=== PATIENT | male | born 1985 | race Caucasian/White ===

== ENCOUNTER 2020-10-11 14:09 | Emergency (ER) | payer OTHER, SELFPAY ==
[2020-10-11] MEDS ORDERED: diphenhydrAMINE 50 MG/ML VIAL ONE (15:00)
[2020-10-11] MEDS ORDERED: Acetaminophen 500 MG TAB ONE (15:01)
[2020-10-11] MEDS ORDERED: Metoclopramide HCl 10 MG/2 ML VIAL ONE (15:01)
== END 2020-10-11 16:40 | disposition home or self-care (01) ==
LOC: CSHERS 14:09
DX: R51.9 Headache, unspecified (principal); I10 Essential (primary) hypertension; E78.00 Pure hypercholesterolemia, unspecified
CPT/HCPCS: 70450; 72125; 96365; 96375; J1200; J2765

== ENCOUNTER 2020-10-12 06:24 | Emergency (ER) | payer OTHER, SELFPAY ==
[2020-10-12] MEDS ORDERED: Cefepime 2 GM VIAL ONE (06:57)
[2020-10-12] MEDS ORDERED: Acetaminophen 500 MG TAB ONE (06:57)
[2020-10-12 07:37] LABS: #Eosinphils 0.1 10x3/uL (0.0-0.5); #Monocytes 0.3 10x3/uL (0.0-1.1); %Basophils 0.4 % (0.0-2.0); %Eosinophils 0.9 % (0.0-6.0); %Lymphocytes 22.3 % (18.0-47.0); %Monocytes 2.8 % (0.0-10.0); Hemoglobin 15.9 g/dL (13.5-17.5); Mean Corpuscular HGB CONC 33.9 g/dL (32.0-36.0); Mean Corpuscular Hemoglobin 32.6 pg (27.0-33.0); Mean Corpuscular Volume 96.1 fl (81.2-95.1); Mean Platelet Volume 10.6 fl (7.4-10.4); Platelet Count 161 10x3/uL (150-450); RBC Distribution Width 12.7 % (11.5-14.5); Red Blood Cell (RBC) Count 4.88 10x6/uL (4.32-5.72); White Blood Cell (WBC) Count 9.8 10x3/uL (3.5-10.5)
[2020-10-12 07:58] LABS: Acetaminophen Less than 6.0 mcg/mL (10.0-30.0); Alcohol Less than 10 mg/dL (Less than 10); Salicylate Less than 8.0 mg/dL (15.0-30.0)
[2020-10-12 08:01] LABS: ALT (SGPT) 50 U/L (8-55); AST (SGOT) 29 U/L (5-34); Alkaline Phosphatase 74 U/L (40-110); Anion Gap 21 mmol/L (10-20); BUN (Urea Nitrogen) 11 mg/dL (8.9-20.6); Bilirubin, Total 1.7 mg/dL (0.2-1.2); CK (CPK) 67 U/L (30-200); Calc. Creatinine Clearance 0 mL/min (70-130); Calcium 8.9 mg/dL (7.8-10.44); Carbon Dioxide 18 mmol/L (22-29); Chloride 104 mmol/L (98-107); Globulin 3.4 g/dL (2.4-3.5); Glucose 148 mg/dL (70-105); Potassium 3.8 mmol/L (3.5-5.1); Protein, Total 7.4 g/dL (6.0-8.3); Sodium 139 mmol/L (136-145)
[2020-10-12 08:04] LABS: SARS-CoV-2 NAA Rapid Test Not Detected (NotDetected)
[2020-10-12] MEDS ORDERED: Ibuprofen 200 MG TAB ONE (08:13)
[2020-10-12 10:05] LABS: Bilirubin Neg (Negative); Blood, Urine 150 (Negative); Clarity Slightly Cloudy (Clear); Glucose, Urine (Dipstick) Normal (Negative); Ketone, Urine Negative (Negative); Leukocyte 100 (Negative); Nitrite Positive (Negative); Protein, Urine (Dipstick) 15 mg/dl (Neg-Trace); Specific Gravity, Urine 1.005 (1.002-1.036); Urobilinogen Normal mg/dL (Less than 2)
[2020-10-12 10:13] LABS: Amphetamine Not Detected (NotDetected); Barbiturates Screen Not Detected (NotDetected); Benzodiazepine Screen Not Detected (NotDetected); Cocaine Metabolite Screen Not Detected (NotDetected); Methadone Not Detected (NotDetected); Methamphetamine Not Detected (NotDetected); Opiate Screen Not Detected (NotDetected); Oxycodone Screen Not Detected (NotDetected); Phencyclidine (PCP) Not Detected (NotDetected); THC/Cannabinoid Screen Not Detected (NotDetected); Tricyclic Screen Not Detected (NotDetected)
[2020-10-12 10:20] LABS: RBC/HPF 0-3 HPF (0-3)
[2020-10-12 10:21] LABS: Bacteria/HPF 1+ HPF (None Seen); Squamous Epithelial 0-3 HPF (0-3)
[2020-10-12 10:24] LABS: Lactic Acid 1.1 mmol/L (0.5-2.2)
== END 2020-10-12 11:37 | disposition home or self-care (01) ==
LOC: CSHERS 06:24
DX: N30.00 Acute cystitis without hematuria (principal); B97.89 Other viral agents as the cause of diseases classified elsewhere; E78.5 Hyperlipidemia, unspecified; I10 Essential (primary) hypertension
CPT/HCPCS: 0240U; 71045; 80053; 80306; 80307; 81003; 81015; 82550; 83605; 84443; 84484; 85025; 87040; 87077; 87086; 87149; 87186; 93005; 94760; 96365; 96367; J0692; J3370

== ENCOUNTER 2020-10-13 08:35 | Observation (INO) | payer OTHER, SELFPAY ==
[2020-10-13 09:29] LABS: #Basophils 0.1 10x3/uL (0.0-0.2); #Eosinphils 0.1 10x3/uL (0.0-0.5); #Monocytes 0.6 10x3/uL (0.0-1.1); #Neutrophils 4.9 10x3/uL (1.5-8.4); %Basophils 0.6 % (0.0-2.0); %Eosinophils 1.6 % (0.0-6.0); %Lymphocytes 23.7 % (18.0-47.0); %Monocytes 8.2 % (0.0-10.0); %Neutrophils 63.8 % (40.0-75.0); Hemoglobin 14.5 g/dL (13.5-17.5); Mean Corpuscular HGB CONC 33.7 g/dL (32.0-36.0); Mean Corpuscular Hemoglobin 32.7 pg (27.0-33.0); Mean Corpuscular Volume 97.1 fl (81.2-95.1); Mean Platelet Volume 10.2 fl (7.4-10.4); Platelet Count 140 10x3/uL (150-450); RBC Distribution Width 12.8 % (11.5-14.5); Red Blood Cell (RBC) Count 4.43 10x6/uL (4.32-5.72); White Blood Cell (WBC) Count 7.7 10x3/uL (3.5-10.5)
[2020-10-13 09:34] LABS: ALT (SGPT) 40 U/L (8-55); AST (SGOT) 28 U/L (5-34); Albumin 3.6 g/dL (3.5-5.0); Alkaline Phosphatase 55 U/L (40-110); Anion Gap 13 mmol/L (10-20); BUN (Urea Nitrogen) 8 mg/dL (8.9-20.6); Bilirubin, Total 0.6 mg/dL (0.2-1.2); Calc. Creatinine Clearance 0 mL/min (70-130); Calcium 8.6 mg/dL (7.8-10.44); Carbon Dioxide 20 mmol/L (22-29); Chloride 111 mmol/L (98-107); Globulin 3.7 g/dL (2.4-3.5); Glucose 109 mg/dL (70-105); Potassium 3.8 mmol/L (3.5-5.1); Protein, Total 7.3 g/dL (6.0-8.3); Sodium 140 mmol/L (136-145)
[2020-10-13] MEDS ORDERED: cefTRIAXone\\ROCEPHIN 2 GM VIAL ONE (10:37)
[2020-10-13 12:37] VITALS: BMI 37.2
[2020-10-13] MEDS ORDERED: Ondansetron ODT 4 MG TAB PO PRN (16:09)
[2020-10-13] MEDS ORDERED: Ondansetron PF 4 MG/2 ML Vial IVP PRN (16:09)
[2020-10-13] MEDS ORDERED: Acetaminophen 325 MG TAB PO PRN (16:11)
[2020-10-14 06:16] LABS: Anion Gap 11 mmol/L (10-20); BUN (Urea Nitrogen) 8 mg/dL (8.9-20.6); Calc. Creatinine Clearance 225 mL/min (70-130); Calcium 8.9 mg/dL (7.8-10.44); Carbon Dioxide 26 mmol/L (22-29); Chloride 109 mmol/L (98-107); Glucose 106 mg/dL (70-105); Potassium 3.8 mmol/L (3.5-5.1); Sodium 142 mmol/L (136-145)
[2020-10-14 07:31] LABS: #Basophils 0.1 10x3/uL (0.0-0.2); #Eosinphils 0.2 10x3/uL (0.0-0.5); #Monocytes 0.8 10x3/uL (0.0-1.1); #Neutrophils 3.7 10x3/uL (1.5-8.4); %Basophils 0.8 % (0.0-2.0); %Eosinophils 2.7 % (0.0-6.0); %Lymphocytes 34.1 % (18.0-47.0); %Monocytes 10.2 % (0.0-10.0); %Neutrophils 49.6 % (40.0-75.0); Hemoglobin 14.1 g/dL (13.5-17.5); Mean Corpuscular HGB CONC 33.4 g/dL (32.0-36.0); Mean Corpuscular Hemoglobin 32.8 pg (27.0-33.0); Mean Corpuscular Volume 98.1 fl (81.2-95.1); Mean Platelet Volume 10.3 fl (7.4-10.4); Platelet Count 166 10x3/uL (150-450); White Blood Cell (WBC) Count 7.4 10x3/uL (3.5-10.5)
[2020-10-14] MEDS ORDERED: Enoxaparin Sodium 40 MG/0.4 ML SYRINGE SC SCH (09:00)
[2020-10-14] MEDS ORDERED: cefTRIAXone\\ROCEPHIN 2 GM in Sodium Chloride 0.9% 100 ML IVPB SCH (11:00)
[2020-10-14 15:43] VITALS: BP 138/83; TEMP 98.1
== END 2020-10-14 17:47 | disposition home or self-care (01) ==
LOC: CSHERS 08:35 → CSHTELE 11:44
PROVIDERS: ADMIT Internal Medicine; ATTEND Internal Medicine
DX: A49.8 Other bacterial infections of unspecified site (principal); R78.81 Bacteremia; I10 Essential (primary) hypertension; E78.5 Hyperlipidemia, unspecified
CPT/HCPCS: 36415; 80048; 80053; 83605; 85025; 85652; 86140; 87040; 96365; 96372; 96376; G0378; J0696; J1650; J3490